=== PATIENT | female | born 1975 | race Caucasian/White ===

== ENCOUNTER 2018-02-12 14:05 | Emergency (ER) | payer SELFPAY ==
[~2018-02-12] VITALS: Ht 162.6 cm; Wt 78.9 kg
[~2018-02-12 14:05] MED LIST: ACET325T49 PO; CLON0.1T; CLON1TAB36 PO; DICY20TA10; DOXY100C2 PO; DULO60CA6 PO; GABA800T2 PO; HCTZ12.5T PO; IBUP800T26 PO; LAMO100T PO; LEVO50TA6; LISI-552; LVT.15T PO; PRAM1TAB3 PO; PRD20T PO; RT-ALBUINH IH; SIME125C PO; SLF500T PO
--- OUTSIDE RECORDS SUMMARY | 2018-02-12 14:10 | XMS REPORT ---
Author Author MYNOR PLAZA eClinicalWorks Address Unknown Phone Unavailable Care Team Providers Care Inorganic Chemist Name Role Phone MYNOR PLAZA CP Unavailable Allergies No Known Allergies Problems Problem Type Condition Code Onset Dates Condition Status Problem History of hypothyroidism Z86.39 Active Problem Left hip pain M25.552 Active Problem Adult acne L70.9 Active Assessment Hyperlipidemia, unspecified hyperlipidemia type E78.5 Active Assessment Hypothyroidism, unspecified type E03.9 Active Problem Hyperlipidemia, unspecified hyperlipidemia type E78.5 Active Problem Encounter for long-term current use of medication Z79.899 Active Problem Hypothyroidism, unspecified type E03.9 Active Problem Essential hypertension I10 Active Problem Anxiety associated with depression F41.8 Active Problem PTSD (post-traumatic stress disorder) F43.10 Active Problem Generalized abdominal pain R10.84 Active Medications Medication Code System Code Instructions Start Date End Date Status Dosage Fish Oil [facility] [address]-99 1000 MG Orally 2 times a day Dec 17, 2015 1 capsule Levothyroxine Sodium [facility] [address]-58 50 MCG Orally Once a day Dec 17, 2015 1 tablet Results No Known Results Summary Purpose eClinicalWorks Submission
--- OUTSIDE RECORDS SUMMARY | 2018-02-12 14:10 | XMS REPORT ---
Author Author AYAN BAIRD [facility] eClinicalWorks Address Unknown Phone Unavailable Care Team Providers Care Military Equipment Specialist Name Role Phone AYAN BAIRD CP Unavailable Allergies No Known Allergies Problems Problem Type Condition Code Onset Dates Condition Status Problem Generalized abdominal pain R10.84 Active Problem Encounter for long-term current use of medication Z79.899 Active Problem PTSD (post-traumatic stress disorder) F43.10 Active Problem Bowel habit changes R19.4 Active Problem Anxiety F41.9 Active Problem Lupus M32.9 Active Problem Hypothyroidism, unspecified type E03.9 Active Problem Hyperlipidemia, unspecified hyperlipidemia type E78.5 Active Problem Sinusitis J32.9 Active Problem Irritable bowel K58.9 Active Problem Adult acne L70.9 Active Problem Left hip pain M25.552 Active Assessment Bowel habit changes R19.4 Active Problem Anxiety associated with depression F41.8 Active Problem History of hypothyroidism Z86.39 Active Problem Essential hypertension I10 Active Medications No Known Medications Procedures Procedure Coding System Code Date LAB NOT BILLED BY [facility] CPT-4 NOBLL March 12, 2016 Results No Known Results Summary Purpose eClinicalWorks Submission
--- OUTSIDE RECORDS SUMMARY | 2018-02-12 14:10 | XMS REPORT ---
Author Author AYAN BAIRD [facility] eClinicalWorks Address Unknown Phone Unavailable Care Team Providers Care Hydrostatic Tester Name Role Phone AYAN BAIRD CP Unavailable [...] Problem Left hip pain M25.552 Active Problem Anxiety associated with depression F41.8 Active Problem History of hypothyroidism Z86.39 Active Problem Essential hypertension I10 Active Medications Medication Code System Code Instructions Start Date End Date Status Dosage Cholecalciferol [facility] [address]2006 UNIT Orally twice weekly March 10, 2016 1 tablet Results No Known Results Summary Purpose eClinicalWorks Submission
--- OUTSIDE RECORDS SUMMARY | 2018-02-12 14:10 | XMS REPORT ---
Author Author AYAN BAIRD Organization [employer] Address Unknown Phone Unavailable Care Team Providers Care Insurance Agency Owner Name Role Phone AYAN BAIRD CP Unavailable [...] Instructions Start Date End Date Status Dosage Levothyroxine Sodium [facility] [address]-31 50 MCG Orally Once a day Dec 17, 2015 1 tablet Lisinopril [facility] [address]-68 20 mg Orally Once a day Dec 16, 2015 1 tablet Results No Known Results Summary Purpose eClinicalWorks Submission
--- OUTSIDE RECORDS SUMMARY | 2018-02-12 14:10 | XMS REPORT ---
Author Author AYAN BAIRD [facility] Address [address] [place] [address] Care Team Providers Care It Sales Representative Name Role Phone AYAN BAIRD Unavailable PROBLEMS Type Condition ICD9-CM Code [id number] Code Onset Dates Condition Status SNOMED Code Problem Generalized abdominal pain R10.84 Active 641214360 Problem Hyperlipidemia, unspecified hyperlipidemia type E78.5 Active 15120890 Problem Hypothyroidism, unspecified type E03.9 Active 03274941 Problem Right axillary swelling M79.89 Active 510898433 Problem Irritable bowel K58.9 Active 73558903 Problem Sinusitis J32.9 Active 77594819 Problem Lupus M32.9 Active 01097097 Problem Bowel habit changes R19.4 Active 66043217 Problem Anxiety F41.9 Active 56931200 Problem Essential hypertension I10 Active 44552381 Problem Encounter for long-term current use of medication Z79.899 Active 751265396 Problem Adult acne L70.9 Active 34465031 Problem History of hypothyroidism Z86.39 Active 999677501 Problem Anxiety associated with depression F41.8 Active 639776858 Problem PTSD (post-traumatic stress disorder) F43.10 Active 58774409 Problem Left hip pain M25.552 Active 887676951 ALLERGIES Substance Reaction Event Type Date Status Clindamycin HCl Unknown Drug Allergy Nov, Active SOCIAL HISTORY No smoking Hx information available PLAN OF CARE Activity Details Follow Up 6 Months, prn Reason:BP thyroid VITAL SIGNS Height 63 in 2016-12-16 Weight 181.6 lbs 2016-12-16 Temperature 98.7 degrees Fahrenheit 2016-12-16 Heart Rate 82 bpm 2016-12-16 Respiratory Rate 18 2016-12-16 BMI 32.17 kg/m2 2016-12-16 Blood pressure systolic 136 mmHg 2016-12-16 Blood pressure diastolic 85 mmHg 2016-12-16 MEDICATIONS Medication Instructions Dosage Frequency Start Date End Date Duration Status Lisinopril 20 MG Orally Once a day 1 tablet 24h Active Bentyl 20 mg Orally 3 times a day 1 tablet by Oral route 3 times per day Pt needs f/u appt for further refills 8h 30 Active Bentyl 20 mg Orally 3 times a day prn 1 tablet by Oral route 3 times per day Pt needs f/u appt for further refills Active Levothyroxine Sodium 50 MCG Orally Once a day 1 tablet 24h Active Clonidine HCl 0.1 MG Orally twice a day as needed for anxiety 1 tablet 30 days Active Ibuprofen 800 MG Orally 2 times a day 1 tablet 12h 30 Active RESULTS Name Result Date Reference Range TSH 2016-12-16 TSH 2.520 0.450-4.500 CBC 2016-12-16 WBC 6.8 3.4-10.8 RBC 4.66 3.77-5.28 Hemoglobin 14.3 11.1-15.9 Hematocrit 41.3 34.0-46.6 MCV 89 79-97 MCH 30.7 26.6-33.0 MCHC 34.6 31.5-35.7 RDW 13.8 12.3-15.4 Platelets 262 150-379 Neutrophils 42 Lymphs 47 Monocytes 5 Eos 6 Basos 0 Neutrophils (Absolute) 2.8 1.4-7.0 Lymphs (Absolute) 3.2 0.7-3.1 Monocytes(Absolute) 0.4 0.1-0.9 Eos (Absolute) 0.4 0.0-0.4 Baso (Absolute) 0.0 0.0-0.2 Immature Granulocytes 0 Immature Grans (Abs) 0.0 0.0-0.1 LIPID PANEL 2016-12-16 Cholesterol, Total 228 100-199 Triglycerides 238 0-149 HDL Cholesterol 28 >39 VLDL Cholesterol Cristopher 48 5-40 LDL Cholesterol Calc 152 0-99 CMP 2016-12-16 Glucose, Serum 84 65-99 BUN 5 6-24 Creatinine, Serum 0.64 0.57-1.00 eGFR If NonAfricn Am 110 >59 eGFR If Africn Am 126 >59 BUN/Creatinine Ratio 8 9-23 Sodium, Serum 141 134-144 Potassium, Serum 4.2 3.5-5.2 Chloride, Serum 102 96-106 Carbon Dioxide, Total 22 18-29 Calcium, Serum 9.1 8.7-10.2 Protein, Total, Serum 6.9 6.0-8.5 Albumin, Serum 4.3 3.5-5.5 Globulin, Total 2.6 1.5-4.5 A/G Ratio 1.7 1.1-2.5 Bilirubin, Total 0.3 0.0-1.2 Alkaline Phosphatase, S 80 39-117 AST (SGOT) 15 0-40 ALT (SGPT) 13 0-32 PROCEDURES Procedure Date Ordered Related Diagnosis Body Site ASSAY THYROID STIM HORMONE Dec 16, 2016 COMPREHEN METABOLIC PANEL Dec 16, 2016 COMPLETE CBC W/AUTO DIFF WBC Dec 16, 2016 LIPID PANEL Dec 16, 2016 Office Visit, Est Pt., Level 4 Dec 16, 2016 VENIPUNCT, ROUTINE* Dec 16, 2016 IMMUNIZATIONS No Known Immunizations
--- OUTSIDE RECORDS SUMMARY | 2018-02-12 14:10 | XMS REPORT ---
Author Author AYAN BAIRD [facility] eClinicalWorks Address Unknown Phone Unavailable Care Team Providers Care Machine Stripper Name Role Phone AYAN BAIRD CP Unavailable Allergies, Adverse Reactions, Alerts Substance Reaction Event Type Clindamycin HCl Info Not Available Drug Allergy Problems Problem Type Condition Code Onset Dates Condition Status Problem PTSD (post-traumatic stress disorder) F43.10 Active Problem Hyperlipidemia, unspecified hyperlipidemia type E78.5 Active Problem Encounter for long-term current use of medication Z79.899 Active Problem Lupus M32.9 Active Assessment Anxiety F41.9 Active Problem Bowel habit changes R19.4 Active Assessment Right axillary swelling M79.89 Active Problem Right axillary swelling M79.89 Active Problem Irritable bowel K58.9 Active Problem Hypothyroidism, unspecified type E03.9 Active Problem Anxiety F41.9 Active Problem Sinusitis J32.9 Active Assessment Essential hypertension I10 Active Assessment Hypothyroidism, unspecified type E03.9 Active Assessment Irritable bowel K58.9 Active Assessment Vitamin D deficiency E55.9 Active Problem Left hip pain M25.552 Active Problem Anxiety associated with depression F41.8 Active Problem History of hypothyroidism Z86.39 Active Problem Essential hypertension I10 Active Problem Adult acne L70.9 Active Problem Generalized abdominal pain R10.84 Active Medications Medication Code System Code Instructions Start Date End Date Status Dosage Ibuprofen [facility] 49676643603 800 MG Orally 2 times a day 1 tablet Bentyl [facility] 84351655099 20 mg Orally 3 times a day 1 tablet by Oral route 3 times per day Pt needs f/u appt for further refills Bentyl [facility] [address]-99 20 mg Orally 3 times a day prn 1 tablet by Oral route 3 times per day Pt needs f/u appt for further refills Lisinopril [facility] [address]-36 20 MG Orally Once a day 1 tablet Levothyroxine Sodium [facility] [address]-06 50 MCG Orally Once a day 1 tablet Clonidine HCl [facility] [address]-41 0.1 MG Orally twice a day as needed for anxiety Dec 16, 2015 1 tablet Augmentin [facility] [address]-19 875-125 MG Orally every 12 hrs June 15, 2016 Jun 25, 2016 1 tablet Vitamin D (Cholecalciferol) [facility] [address] 5000 UNIT Orally Once a day June 15, 2016 Jul 15, 2016 1 capsule Fish Oil [facility] [address]-96 1000 MG Orally 2 times a day Dec 17, 2015 1 capsule Procedures Procedure Coding System Code Date LAB NOT BILLED BY [facility] CPT-4 NOBLL June 15, 2016 Office Visit, Est Pt., Level 5 CPT-4 54818 June 15, 2016 ELECTROCARDIOGRAM, TRACING CPT-4 02936 June 15, 2016 VENIPUNCT, ROUTINE* CPT-4 32333 June 15, 2016 Vital Signs Date/Time: June 15, 2016 Cardiac Monitoring Heart Rate 78 bpm Weight 186.0 lbs Height 63 in Blood Pressure Diastolic 100 mmHg Blood Pressure Systolic 156 mmHg Results No Known Results Summary Purpose eClinicalWorks Submission
--- OUTSIDE RECORDS SUMMARY | 2018-02-12 14:10 | XMS REPORT ---
Author Author AYAN BAIRD [facility] eClinicalWorks Address Unknown Phone Unavailable Care Team Providers Care Golf Ball Winder Name Role Phone AYAN BAIRD CP Unavailable Allergies, Adverse Reactions, Alerts Substance Reaction Event Type Clindamycin HCl Info Not Available Drug Allergy Problems Problem Type Condition Code Onset Dates Condition Status Problem Generalized abdominal pain R10.84 Active Problem Encounter for long-term current use of medication Z79.899 Active Problem PTSD (post-traumatic stress disorder) F43.10 Active Problem Bowel habit changes R19.4 Active Assessment Sinusitis J32.9 Active Problem Anxiety F41.9 Active Assessment Irritable bowel K58.9 Active Assessment Generalized abdominal pain R10.84 Active Problem Lupus M32.9 Active Problem Hypothyroidism, unspecified type E03.9 Active Problem Hyperlipidemia, unspecified hyperlipidemia type E78.5 Active Problem Sinusitis J32.9 Active Problem Irritable bowel K58.9 Active Assessment Lupus M32.9 Active Assessment Essential hypertension I10 Active Assessment Anxiety F41.9 Active Assessment Bowel habit changes R19.4 Active Problem Adult acne L70.9 Active Problem Left hip pain M25.552 Active Assessment Hypothyroidism, unspecified type E03.9 Active Problem Anxiety associated with depression F41.8 Active Assessment Diarrhea R19.7 Active Problem History of hypothyroidism Z86.39 Active Problem Essential hypertension I10 Active Medications Medication Code System Code Instructions Start Date End Date Status Dosage Fish Oil [facility] [address]-66 1000 MG Orally 2 times a day Dec 17, 2015 1 capsule Clonidine HCl [facility] [address]-18 0.1 MG Orally twice a day as needed for anxiety Dec 16, 2015 1 tablet Doxycycline Hyclate [facility] [place] [address]-63 100 MG Orally every 12 hrs March 03, 2016 March 13, 2016 1 capsule Bentyl [facility] [address]-72 20 mg Orally 3 times a day May 10, 2014 1 tablet by Oral route 3 times per day Pt needs f/u appt for further refills Levothyroxine Sodium [facility] [place] [address]-34 50 MCG Orally Once a day Dec 17, 2015 1 tablet Lisinopril [facility] [address]-72 20 MG Orally Once a day Dec 16, 2015 1 tablet Ibuprofen [facility] [address]-96 800 MG Orally 2 times a day Dec 16, 2015 1 tablet Procedures Procedure Coding System Code Date Office Visit, Est Pt., Level 5 CPT-4 79851 March 03, 2016 VENIPUNCT, ROUTINE* CPT-4 77395 March 03, 2016 X-RAY EXAM OF ABDOMEN CPT-4 70316 March 03, 2016 Vital Signs Date/Time: March 03, 2016 Temperature 99.0 F Weight 193.8 lbs Height 63 in BMI 34.33 Index Blood Pressure Diastolic 82 mmHg Blood Pressure Systolic 134 mmHg Cardiac Monitoring Heart Rate 86 bpm Results Name Result Date Reference Range Unit Abnormality Flag CBC ----Lymphs 40 65169467 % ----Neutrophils 45 92720589 % ----Baso (Absolute) 0.1 03248347 0.0-0.2 x10E3/uL ----Hemoglobin 15.3 65616029 11.1-15.9 g/dL ----Eos (Absolute) 0.7 09273856 0.0-0.4 x10E3/uL H ----Hematocrit 44.3 99452394 34.0-46.6 % ----Monocytes(Absolute) 0.5 58052405 0.1-0.9 x10E3/uL ----MCV 89 76812785 79-97 fL ----Lymphs (Absolute) 3.4 16834936 0.7-3.1 x10E3/uL H ----MCH 30.7 02704368 26.6-33.0 pg ----Neutrophils (Absolute) 3.9 96462077 1.4-7.0 x10E3/uL ----MCHC 34.5 48918169 31.5-35.7 g/dL ----Immature Granulocytes 0 88942048 % ----Basos 1 95287804 % ----RDW 13.6 90981448 12.3-15.4 % ----Immature Grans (Abs) 0.0 18530676 0.0-0.1 x10E3/uL ----WBC 8.5 14784321 3.4-10.8 x10E3/uL ----Platelets 265 43369237 150-379 x10E3/uL ----Eos 8 23880943 % ----RBC 4.99 49944385 3.77-5.28 x10E6/uL ----Monocytes 6 47548264 % ESR/SED RATE ----Sedimentation Rate-Westergren 19 75527582 0-32 mm/hr ROUTINE VENIPUNCTURE TSH ----TSH 3.210 86334955 0.450-4.500 uIU/mL VITAMIN D, 25-H ----Vitamin D, 25-Hydroxy 11.8 11810938 30.0-100.0 ng/mL L CMP ----Creatinine, Serum 0.62 28951500 0.57-1.00 mg/dL ----BUN 6 95299599 6-24 mg/dL ----eGFR If Africn Am 129 30571057 >59 mL/min/1.73 ----eGFR If NonAfricn Am 112 73075100 >59 mL/min/1.73 ----Sodium, Serum 142 88748664 134-144 mmol/L ----BUN/Creatinine Ratio 10 34320465 9-23 ----Chloride, Serum 102 79622206 97-108 mmol/L ----Potassium, Serum 4.3 38189927 3.5-5.2 mmol/L ----Carbon Dioxide, Total 22 89271601 18-29 mmol/L ----Protein, Total, Serum 7.6 50581777 6.0-8.5 g/dL ----Calcium, Serum 9.4 73601959 8.7-10.2 mg/dL ----Globulin, Total 2.9 87834280 1.5-4.5 g/dL ----Albumin, Serum 4.7 93412701 3.5-5.5 g/dL ----Bilirubin, Total 0.3 09193647 0.0-1.2 mg/dL ----Glucose, Serum 80 55327076 65-99 mg/dL ----A/G Ratio 1.6 23543491 1.1-2.5 ----ALT (SGPT) 19 20160303 0-32 IU/L ----Alkaline Phosphatase, S 101 20160303 39-117 IU/L ----AST (SGOT) 14 20160303 0-40 IU/L Summary Purpose eClinicalWorks Submission
--- OUTSIDE RECORDS SUMMARY | 2018-02-12 14:11 | XMS REPORT ---
Author Author LYNN FELICIANO Organization [facility] Address [address] [place] [address] Care Team Providers Care Irrigation Tax Assessor Collector Name Role Phone LYNN FELICIANO Unavailable PROBLEMS Type Condition ICD9-CM Code [id number] Code Onset Dates Condition Status SNOMED Code Problem Generalized abdominal pain R10.84 Active 981679076 Problem Hyperlipidemia, unspecified hyperlipidemia type E78.5 Active 02065325 Problem Hypothyroidism, unspecified type E03.9 Active 15752374 Problem Right axillary swelling M79.89 Active 677848805 Problem Irritable bowel K58.9 Active 30831030 Problem Sinusitis J32.9 Active 22218634 Problem Lupus M32.9 Active 12956610 Problem Bowel habit changes R19.4 Active 95667136 Problem Anxiety F41.9 Active 10763904 Problem Essential hypertension I10 Active 48735878 Problem Encounter for long-term current use of medication Z79.899 Active 249246113 Problem Adult acne L70.9 Active 68851110 Problem History of hypothyroidism Z86.39 Active 855833639 Problem Anxiety associated with depression F41.8 Active 231215660 Problem PTSD (post-traumatic stress disorder) F43.10 Active 26578927 Problem Left hip pain M25.552 Active 770304416 ALLERGIES Substance Reaction Event Type Date Status Clindamycin HCl Unknown Drug Allergy Oct, Active SOCIAL HISTORY No smoking Hx information available PLAN OF CARE Activity Details Follow Up prn Madl if symptoms do not improve Reason: VITAL SIGNS Height 63 in 2016-11-18 Weight 184.0 lbs 2016-11-18 Temperature 97.8 degrees Fahrenheit 2016-11-18 Heart Rate 80 bpm 2016-11-18 Respiratory Rate 18 2016-11-18 BMI 32.59 kg/m2 2016-11-18 Blood pressure systolic 120 mmHg 2016-11-18 Blood pressure diastolic 88 mmHg 2016-11-18 MEDICATIONS Medication Instructions Dosage Frequency Start Date End Date Duration Status Clonidine HCl 0.1 MG Orally twice a day as needed for anxiety 1 tablet Nov, 30 days Active Doxycycline Hyclate 100 MG Orally every 12 hrs 1 capsule 12h Oct, Nov, 5 day(s) Active Lisinopril 20 MG Orally Once a day 1 tablet 24h Active Levothyroxine Sodium 50 MCG Orally Once a day 1 tablet 24h Active Ibuprofen 800 MG Orally 2 times a day 1 tablet 12h 30 Active RESULTS No Results PROCEDURES Procedure Date Ordered Related Diagnosis Body Site Office Visit, Est Pt., Level 3 Nov 18, 2016 IMMUNIZATIONS No Known Immunizations
--- OUTSIDE RECORDS SUMMARY | 2018-02-12 14:11 | XMS REPORT ---
Author Author AYAN BAIRD [facility] Address [address] [place] [address] Care Team Providers Care Integrated Marketing Manager Name Role Phone AYAN BAIRD Unavailable PROBLEMS Type Condition ICD9-CM Code [id number] Code Onset Dates Condition Status SNOMED Code Problem Generalized abdominal pain R10.84 Active 103806052 Problem Hyperlipidemia, unspecified hyperlipidemia type E78.5 Active 98511321 Problem Hypothyroidism, unspecified type E03.9 Active 72564406 Problem Right axillary swelling M79.89 Active 150275469 Problem Irritable bowel K58.9 Active 76741710 Problem Sinusitis J32.9 Active 68663687 Problem Lupus M32.9 Active 24089249 Problem Bowel habit changes R19.4 Active 84130926 Problem Anxiety F41.9 Active 41663400 Problem Essential hypertension I10 Active 39383845 Problem Encounter for long-term current use of medication Z79.899 Active 122101733 Problem Adult acne L70.9 Active 88282043 Problem History of hypothyroidism Z86.39 Active 266153590 Problem Anxiety associated with depression F41.8 Active 635055532 Problem PTSD (post-traumatic stress disorder) F43.10 Active 92290977 Problem Left hip pain M25.552 Active 169429668 ALLERGIES Unknown Allergies SOCIAL HISTORY No smoking Hx information available PLAN OF CARE VITAL SIGNS MEDICATIONS Medication Instructions Dosage Frequency Start Date End Date Duration Status Bentyl 20 mg Orally 3 times a day 1 tablet by Oral route 3 times per day Pt needs f/u appt for further refills 8h 30 Active Levothyroxine Sodium 50 MCG Orally Once a day 1 tablet 24h Active RESULTS No Results PROCEDURES No Known procedures IMMUNIZATIONS No Known Immunizations
--- OUTSIDE RECORDS SUMMARY | 2018-02-12 14:11 | XMS REPORT ---
Author Author MYNOR PLAZA [employer] Address Unknown Phone Unavailable Care Team Providers Care Radio Division Captain Name Role Phone MYNOR PLAZA CP Unavailable Allergies, Adverse Reactions, Alerts Substance Reaction Event Type Clindamycin HCl Info Not Available Drug Allergy Problems Problem Type Condition Code Onset Dates Condition Status Assessment Encounter for long-term current use of medication Z79.899 Active Problem History of hypothyroidism Z86.39 Active Assessment Generalized abdominal pain R10.84 Active Problem PTSD (post-traumatic stress disorder) F43.10 Active Problem Generalized abdominal pain R10.84 Active Problem Encounter for long-term current use of medication Z79.899 Active Problem Left hip pain M25.552 Active Problem Adult acne L70.9 Active Problem Essential hypertension I10 Active Problem Anxiety associated with depression F41.8 Active Assessment Adult acne L70.9 Active Assessment Left hip pain M25.552 Active Assessment Anxiety associated with depression F41.8 Active Assessment History of hypothyroidism Z86.39 Active Assessment Essential hypertension I10 Active Medications Medication Code System Code Instructions Start Date End Date Status Dosage Clonidine HCl [facility] [address]-34 0.1 MG Orally twice a day as needed for anxiety Dec 16, 2015 1 tablet Ibuprofen [facility] [address]-43 800 MG Orally 2 times a day Dec 16, 2015 February 14, 2016 1 tablet Bactroban [facility] [address]-52 2 % Externally Three times a day Dec 16, 2015 February 14, 2016 1 application to affected area Bentyl [facility] [address]-95 20 MG Orally 3 times a day May 10, 2014January 1 tablet by Oral route 3 times per day Pt needs f/u appt for further refills Lisinopril [facility] [address]-14 20 MG Orally Once a day Dec 16, 2015 1 tablet Procedures Procedure Coding System Code Date COMPREHEN METABOLIC PANEL CPT-4 82795 Dec 16, 2015 ASSAY THYROID STIM HORMONE CPT-4 09952 Dec 16, 2015 C-REACTIVE PROTEIN CPT-4 95963 Dec 16, 2015 LIPID PANEL CPT-4 74679 Dec 16, 2015 COMPLETE CBC W/AUTO DIFF WBC CPT-4 88410 Dec 16, 2015 VENIPUNCT, ROUTINE* CPT-4 28740 Dec 16, 2015 Office Visit, Est Pt., Level 4 CPT-4 80904 Dec 16, 2015 Vital Signs Date/Time: Dec 16, 2015 Temperature 98.0 F Weight 198.2 lbs Height 63 in BMI 35.11 Index Blood Pressure Diastolic 92 mmHg Blood Pressure Systolic 140 mmHg Cardiac Monitoring Heart Rate 80 bpm Results Name Result Date Reference Range Unit Abnormality Flag CRP ----C-Reactive Protein, Quant 2.6 [id number] 0.0-4.9 mg/L LIPID PANEL ----LDL Cholesterol Calc 127 93239289 0-99 mg/dL H ----VLDL Cholesterol Cristopher 42 21427707 5-40 mg/dL H ----Cholesterol, Total 199 80107067 100-199 mg/dL ----HDL Cholesterol 30 62811628 >39 mg/dL L ----Triglycerides 209 40106331 0-149 mg/dL H TSH ----TSH 6.700 [id number] 0.450-4.500 uIU/mL H CBC ----MCHC 34.0 94821344 31.5-35.7 g/dL ----MCH 30.4 62530301 26.6-33.0 pg ----Platelets 292 14861234 150-379 x10E3/uL ----RDW 13.3 95608639 12.3-15.4 % ----Immature Granulocytes 0 61882016 % ----Immature Grans (Abs) 0.0 09889792 0.0-0.1 x10E3/uL ----Lymphs 39 95792408 % ----Monocytes 6 99305330 % ----Neutrophils 51 93259640 % ----Neutrophils (Absolute) 3.8 96481031 1.4-7.0 x10E3/uL ----Hematocrit 44.4 58560913 34.0-46.6 % ----Lymphs (Absolute) 2.9 38218351 0.7-3.1 x10E3/uL ----MCV 90 78335674 79-97 fL ----RBC 4.96 23369680 3.77-5.28 x10E6/uL ----Eos 3 20151216 % ----Basos 1 20151216 % ----Hemoglobin 15.1 20151216 11.1-15.9 g/dL ----Baso (Absolute) 0.0 40175172 0.0-0.2 x10E3/uL ----WBC 7.4 20151216 3.4-10.8 x10E3/uL ----Monocytes(Absolute) 0.5 96114648 0.1-0.9 x10E3/uL ----Eos (Absolute) 0.2 15356873 0.0-0.4 x10E3/uL CMP ----Potassium, Serum 4.8 20151216 3.5-5.2 mmol/L ----Sodium, Serum 142 20151216 134-144 mmol/L ----BUN/Creatinine Ratio 10 20151216 9-23 ----eGFR If Africn Am 125 00416351 >59 mL/min/1.73 ----eGFR If NonAfricn Am 109 78430244 >59 mL/min/1.73 ----Creatinine, Serum 0.67 20151216 0.57-1.00 mg/dL ----BUN 7 20151216 6-24 mg/dL ----Glucose, Serum 82 20151216 65-99 mg/dL ----AST (SGOT) 20 20151216 0-40 IU/L ----Globulin, Total 3.0 20151216 1.5-4.5 g/dL ----ALT (SGPT) 24 20151216 0-32 IU/L ----A/G Ratio 1.5 20151216 1.1-2.5 ----Bilirubin, Total 0.3 20151216 0.0-1.2 mg/dL ----Alkaline Phosphatase, S 81 20151216 39-117 IU/L ----Carbon Dioxide, Total 24 20151216 18-29 mmol/L ----Calcium, Serum 9.3 20151216 8.7-10.2 mg/dL ----Protein, Total, Serum 7.4 20151216 6.0-8.5 g/dL ----Albumin, Serum 4.4 20151216 3.5-5.5 g/dL ----Chloride, Serum 100 20151216 97-108 mmol/L Summary Purpose eClinicalWorks Submission
[2018-02-12] MEDS ORDERED: HYDR-3584 PO (14:36)
[2018-02-12] MEDS ORDERED: BUDE10.2 IH (14:36)
[2018-02-12 14:54] LABS: BILIRUBIN,URINE NEGATIVE (NEGATIVE); CLARITY,URINE CLEAR; COLOR,URINE YELLOW; GLUCOSE, URINE (UA) NEGATIVE (NEGATIVE); KETONES,URINE NEGATIVE (NEGATIVE); LEUKOCYTE ESTERASE ,URINE 1+ (NEGATIVE); NITRITE,URINE NEGATIVE (NEGATIVE); PH,URINE 6 (5-9); PROTEIN,URINE NEGATIVE (NEGATIVE); UROBILINOGEN,URINE NORMAL (NORMAL)
[2018-02-12 15:01] LABS: BACTERIA,URINE MODERATE /HPF; RBC,URINE RARE /HPF; SQUAMOUS EPITHELIAL CELL,UR 25-50 /HPF
--- NOTE | 2018-02-12 15:43 | ED Abdominal Pain ---
General Chief Complaint: Abdominal/GI Problems Stated Complaint: THROWING UP,CHILLS Nursing Triage Note: ABD SINCE YEST AFTER EATING BEEF JERKY, ABD PAIN N/V/D. THINKS MIGHT BE FOOD POISONING Sepsis Screen: No Definite Risk Source of Information: Patient Exam Limitations: No Limitations History of Present Illness Date Seen by Provider: Feb 12, 2018 Time Seen by Provider: 15:43 Initial Comments 42-year-old patient presents to the emergency department complaints generalized abdominal cramping, nausea, vomiting, and diarrhea beginning yesterday. Reports eating beef jerky prior to symptom onset. States has similar symptoms. Denies eating the same foods. Patient reports losing approximately 80 pounds over the last 12 months from dieting and exercise. Sister is concerned the patient has hypoglycemia and states all of the siblings, mother, and grandmother have hypoglycemia. Timing/Duration: Other (Improved today) Severity/Quality: Cramping Location: Generalized Abdomen Radiation: No Radiation Activities at Onset: Other (after eating beef jerky) Modifying Factors: Worsens With Other (worse with eating and drinking) Allergies and Home Medications Allergies Coded Allergies: acetaminophen (Verified Allergy, Unknown, 04/02/16) clindamycin (Unverified Allergy, Unknown, 12/27/10) propoxyphene (Verified Allergy, Unknown, 04/02/16) Home Medications Acetaminophen 325 Mg Tablet, 650 MG PO PRN, (Reported) Albuterol Sulfate 8.5 Gm Hfa.aer.ad, 2 PUFF IH Q4H PRN for SHORTNESS OF BREATH Prescribed by: MIMA SEALS on 01/17/16 1637 Budesonide/Formoterol Fumarate 10.2 Gm Hfa.aer.ad, 2 PUFF IH BID, (Reported) Ibuprofen 800 Mg Tablet, 800 MG PO q8h PRN for PAIN, (Reported) Ondansetron 8 Mg Tab.rapdis, 8 MG PO Q6H PRN for NAUSEA/VOMITING-1ST LINE Prescribed by: MIMA SEALS on 02/12/18 1731 Past Vfdbkgm-Nszojr-Mmdeso Hx Patient Social History Alcohol Use: Past History Recreational Drug Use: No Smoking Status: Current Everyday Smoker Type Used: Cigarettes Recent Foreign Travel: No Contact w/Someone Who Travel: No Recent Infectious Disease Expo: No Recent Hopitalizations: No Physical Abuse: No Sexual Abuse: No Seasonal Allergies Seasonal Allergies: No Surgeries History of Surgeries: Yes (MAXILLOFACIAL SURG, TEETH EXTRACTIONS) Surgeries: Section, Hysterectomy Respiratory History of Respiratory Disorde: Yes (ASTHMA?) Respiratory Disorders: COPD Cardiovascular History of Cardiac Disorders: No Cardiac Disorders: Hypertension Neurological History of Neurological Disord: Yes Neurological Disorders: Neuropathy Reproductive System Hx Reproductive Disorders: Yes 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 Gastrointestinal History of Gastrointestinal Di: No Musculoskeletal History of Musculoskeletal Dis: Yes (FIBROMYAGLIA, NEUROPATHY) Musculoskeletal Disorders: Fibromyalgia Endocrine History of Endocrine Disorders: Yes Endocrine Disorders: Hypothyroidsim, Lupus Cancer History of Cancer: No Psychosocial History of Psychiatric Problem: Yes Behavioral Health Disorders: Anxiety Suicide Risk Score: 0 Integumentary History of Skin or Integumenta: No Blood Transfusions History of Blood Disorders: No Adverse Reaction to a Blood Tr: No Family Medical History Significant Family History: No Pertinent Family Hx Physical Exam Vital Signs VS - Last 72 Hours, by Label 02/12/18 14:15 Temp 97.8 Pulse 97 Resp 18 B/P (MAP) 161/104 (123) Pulse Ox 98 Capillary Refill : Less Than 3 Seconds Progress/Results/Core Measures Results/Orders Lab Results Laboratory Tests Test 02/12/18 14:38 02/12/18 14:50 02/12/18 15:22 Range/Units Urine Color YELLOW Urine Clarity CLEAR Urine pH 6 5-9 Urine Specific [place] 1.020 1.016-1.022 Urine Protein NEGATIVE NEGATIVE Urine Glucose (UA) NEGATIVE NEGATIVE Urine Ketones NEGATIVE NEGATIVE Urine Nitrite NEGATIVE NEGATIVE Urine Bilirubin NEGATIVE NEGATIVE Urine Urobilinogen NORMAL NORMAL MG/DL Urine Leukocyte Esterase 1+ H NEGATIVE Urine RBC (Auto) NEGATIVE NEGATIVE Urine RBC RARE /HPF Urine WBC NONE /HPF Urine Squamous Epithelial Cells 25-50 H /HPF Urine Crystals NONE /LPF Urine Bacteria MODERATE H /HPF Urine Casts NONE /LPF Urine Mucus NEGATIVE /LPF Urine Culture Indicated NO White Blood Count 6.9 4.3-11.0 10^3/uL Red Blood Count 4.88 4.35-5.85 10^6/uL Hemoglobin 15.2 11.5-16.0 G/DL Hematocrit 45 35-52 % Mean Corpuscular Volume 93 80-99 FL Mean Corpuscular Hemoglobin 31 25-34 PG Mean Corpuscular Hemoglobin Concent 34 32-36 G/DL Red Cell Distribution Width 13.6 10.0-14.5 % Platelet Count 243 130-400 10^3/uL Mean Platelet Volume 11.4 H 7.4-10.4 FL Neutrophils (%) (Auto) 47 42-75 % Lymphocytes (%) (Auto) 44 12-44 % Monocytes (%) (Auto) 5 0-12 % Eosinophils (%) (Auto) 3 0-10 % Basophils (%) (Auto) 1 0-10 % Neutrophils # (Auto) 3.2 1.8-7.8 X 10^3 Lymphocytes # (Auto) 3.0 1.0-4.0 X 10^3 Monocytes # (Auto) 0.3 0.0-1.0 X 10^3 Eosinophils # (Auto) 0.2 0.0-0.3 10^3/uL Basophils # (Auto) 0.1 0.0-0.1 10^3/uL Sodium Level 143 135-145 MMOL/L Potassium Level 3.8 3.6-5.0 MMOL/L Chloride Level 111 H 98-107 MMOL/L Carbon Dioxide Level 23 21-32 MMOL/L Anion Gap 9 5-14 MMOL/L Blood Urea Nitrogen 9 7-18 MG/DL Creatinine 0.73 0.60-1.30 MG/DL Estimat Glomerular Filtration Rate > 60 BUN/Creatinine Ratio 12 Glucose Level 100 70-105 MG/DL Calcium Level 8.9 8.5-10.1 MG/DL Total Bilirubin 0.3 0.1-1.0 MG/DL Aspartate Amino Transf (AST/SGOT) 14 5-34 U/L Alanine Aminotransferase (ALT/SGPT) 15 0-55 U/L Alkaline Phosphatase 89 40-136 U/L C-Reactive Protein High Sensitivity 0.28 0.00-0.50 MG/DL Total Protein 6.9 6.4-8.2 GM/DL Albumin 4.0 3.2-4.5 GM/DL Lipase 41 8-78 U/L Glucometer 69 L 70-110 MG/DL My Orders Petey - MIMA SEALS Cbc With Automated Diff (02/12/18 14:20) Comprehensive Metabolic Panel (02/12/18 14:20) Hs C Reactive Protein (02/12/18 14:20) Lipase (02/12/18 14:20) Ua Culture If Indicated (02/12/18 14:20) Saline Lock/Iv-Start (02/12/18 14:20) D50w (Emergency) Syringe (Dextrose 50% 5 (02/12/18 15:45) Ondansetron Oral Dissolve Tab (Zofran (02/12/18 17:26) Famotidine Tablet (Pepcid Tablet) (02/12/18 17:26) Accucheck Stat ONCE (02/12/18 17:26) Medications Given in ED Current Medications Medications Dose Ordered Sig/Favio Route Start Time Stop Time Status Last Admin Dose Admin Dextrose 50 ml ONCE ONCE IV 02/12/18 15:45 02/12/18 15:47 DC 02/12/18 15:42 50 ML Vital Signs/I&O Vital Sign - Last 12Hours 02/12/18 14:15 Temp 97.8 Pulse 97 Resp 18 B/P (MAP) 161/104 (123) Pulse Ox 98 Blood Pressure Mean: 123 Departure Impression Impression: Primary Impression: Nausea, vomiting, and diarrhea Additional Impression: Hypoglycemia, unspecified Disposition: 01 HOME, SELF-CARE Condition: Improved Departure-Patient Inst. Decision time for Depature: 17:28 Referrals: [facility] (PCP/Family) Primary Care Physician Patient Instructions: Balanced Diet, Low Blood Sugar, Adult (DC), Low Carbohydrate Diet, The New Food Label, Weight Loss Diet Add. Discharge Instructions: All discharge instructions reviewed with patient and/or family. Voiced understanding. Medications as instructed. Continue usual home medications. Drink plenty of fluids. Imodium pwde-yba-ibyqcpv as directed for diarrhea. Follow-up with [facility] for recheck this week. Discuss seeing a dietitian with AKIN Díaz. Return to the emergency department for worsened pain, vomiting, diarrhea, rectal bleeding, vomiting blood, decreased urination, or any other concerns. Scripts Ondansetron (Ondansetron Odt) 8 Mg Tab.rapdis 8 MG PO Q6H Y for NAUSEA/VOMITING-1ST LINE, #10 TAB 0 Refills Prov: MIMA SEALS 02/12/18 MIMA SEALS Feb 12, 2018 15:43
[2018-02-12] MEDS ORDERED: DEXTROSE 50% 50 ML (IMS) SYR IV ONE (15:45)
[2018-02-12 15:51] LABS: BASOPHILS # (AUTO) 0.1 10^3/uL (0.0-0.1); BASOPHILS % (AUTO) 1 % (0-10); EOSINOPHILS # (AUTO) 0.2 10^3/uL (0.0-0.3); EOSINOPHILS % (AUTO) 3 % (0-10); HEMATOCRIT 45 % (35-52); HEMOGLOBIN 15.2 G/DL (11.5-16.0); LYMPHOCYTES % (AUTO) 44 % (12-44); MEAN CORPUSCULAR HEMOGLOBIN 31 PG (25-34); MEAN CORPUSCULAR HGB CONC 34 G/DL (32-36); MEAN CORPUSCULAR VOLUME 93 FL (80-99); MEAN PLATELET VOLUME 11.4 FL (7.4-10.4); MONOCYTES # (AUTO) 0.3 X 10^3 (0.0-1.0); MONOCYTES % (AUTO) 5 % (0-12); NEUTROPHILS # (AUTO) 3.2 X 10^3 (1.8-7.8); NEUTROPHILS % (AUTO) 47 % (42-75); PLATELET COUNT 243 10^3/uL (130-400); RED BLOOD COUNT 4.88 10^6/uL (4.35-5.85); RED CELL DISTRIBUTION WIDTH 13.6 % (10.0-14.5); WHITE BLOOD COUNT 6.9 10^3/uL (4.3-11.0)
[2018-02-12 16:12] LABS: ALANINE AMINOTRANSFERASE 15 U/L (0-55); ALKALINE PHOSPHATASE 89 U/L (40-136); BILIRUBIN,TOTAL 0.3 MG/DL (0.1-1.0); BUN/CREATININE RATIO 12; CALCIUM 8.9 MG/DL (8.5-10.1); CARBON DIOXIDE 23 MMOL/L (21-32); CHLORIDE 111 MMOL/L (98-107); CREATININE SERUM 0.73 MG/DL (0.60-1.30); GFR ESTIMATED > 60; GLUCOSE 100 MG/DL (70-105); LIPASE 41 U/L (8-78); POTASSIUM 3.8 MMOL/L (3.6-5.0); SODIUM 143 MMOL/L (135-145); TOTAL PROTEIN 6.9 GM/DL (6.4-8.2)
[2018-02-12] MEDS ORDERED: FAMOTIDINE 20 MG (PEPCID) TABLET PO STA (17:26)
[2018-02-12] MEDS ORDERED: ONDANSETRON 4 MG (ZOFRAN) ORAL DISSOLVE TAB SL STA (17:26)
[2018-02-12] MEDS ORDERED: ONDA8TAB13 PO (17:31)
[2018-02-12 17:55] VITALS: BP 152/88
== END 2018-02-12 17:55 | disposition home or self-care (01) ==
LOC: ER 14:05
DX: R11.2 Nausea with vomiting, unspecified (principal); R19.7 Diarrhea, unspecified; F41.9 Anxiety disorder, unspecified; E03.9 Hypothyroidism, unspecified; G62.9 Polyneuropathy, unspecified; I10 Essential (primary) hypertension; J44.9 Chronic obstructive pulmonary disease, unspecified; F17.210 Nicotine dependence, cigarettes, uncomplicated; Z87.59 Personal history of other complications of pregnancy, childbirth and the puerperium; Z90.710 Acquired absence of both cervix and uterus; Z88.1 Allergy status to other antibiotic agents; Z88.6 Allergy status to analgesic agent
CPT/HCPCS: 36415; 80053; 81000; 82962; 83690; 85025; 86141; 96374

== ENCOUNTER → 2018-07-03 | Outpatient (CLI) | payer OTHER ==
[~2018-07-03] MED LIST changes: +BUDE10.2 IH; +HYDR-3584 PO; +ONDA8TAB13 PO
--- NOTE | 2018-07-03 10:39 | Diagnostic Imaging Report ---
PROCEDURE: US Gallbladder. TECHNIQUE: Multiple real-time grayscale images were obtained over the right upper quadrant in various projections. INDICATION: Right upper quadrant pain. FINDINGS: The pancreas is unremarkable. The liver is upper limits of normal in size 18 cm. There is homogeneous echotexture. No discrete liver mass is identified. The main portal vein is patent and shows normal direction of flow. The gallbladder is without stones or sludge. No wall thickening or pericholecystic fluid is identified. No intrahepatic or extrahepatic biliary ductal dilatation is seen. The right kidney is unremarkable. There is no ascites. IMPRESSION: Unremarkable gallbladder ultrasound. There is no evidence of cholelithiasis or acute cholecystitis. Dictated by: Dictated on workstation # [id number]
== END ==
LOC: RAD 09:41
PROVIDERS: ATTEND Nurse Practitioner Primary Care
DX: R10.11 Right upper quadrant pain (principal)
CPT/HCPCS: 76705

== ENCOUNTER → 2020-07-31 | Outpatient (CLI) | payer OTHER ==
--- NOTE | 2020-07-31 09:41 | Diagnostic Imaging Report ---
PROCEDURE: MR imaging of the brain without contrast. TECHNIQUE: Multiplanar, multisequence MR imaging of the brain was performed without contrast. INDICATION: Headaches, dizziness and loss of control of the left side of the body. No prior MRI brain studies are available for comparison. FINDINGS: Ventricles and sulci are within normal limits. There is no sulcal effacement or midline shift. No acute intra-axial or extra-axial hemorrhage is detected. Corpus callosum is unremarkable. Sella and parasellar structures are unremarkable. The normal expected flow-voids within the carotid siphons are seen. There is no diffusion restriction identified to suggest acute ischemia. Trace mucosal thickening of the sphenoid sinus is noted. IMPRESSION: Essentially unremarkable noncontrast MRI of the brain. No acute feature is detected. Dictated by: Dictated on workstation # [id number]
== END ==
LOC: RAD 08:34
PROVIDERS: ATTEND Physician Assistant
DX: G62.9 Polyneuropathy, unspecified (principal)
CPT/HCPCS: 70551

== ENCOUNTER 2021-01-10 14:32 | Emergency (ER) | payer MEDICAID, OTHER ==
[~2021-01-10] VITALS: Ht 167 cm; Wt 102.0 kg
[~2021-01-10 14:32] MED LIST changes: +CLN.1T; -CLON0.1T; -LISI-552; +LISI20TA26
[2021-01-10] MEDS ORDERED: FAMOTIDINE 20 MG (PEPCID) TABLET PO ONE (14:45)
[2021-01-10] MEDS ORDERED: diphenhydrAMINE 25 MG TAB (BENADRYL) PO ONE (14:45)
[2021-01-10] MEDS ORDERED: LORATADINE (CLARITIN) 10 MG TAB PO ONE (14:45)
--- NOTE | 2021-01-10 15:35 | ED General ---
General Chief Complaint: Allergic Reaction Stated Complaint: ALLERGIC REACTION; SOB; RED BLOTCHES; Nursing Triage Note: ARRIVED VIA AMB TO ROOM 08 WITH COMPLAINTS OF SOA AND HIVES AFTER EATING A CHICKEN SALAD SANDWHICH. PT TOOK X1 BENADRYL BEFORE COMING TO THE ER. Nursing Sepsis Screen: No Definite Risk History of Present Illness Date Seen by Provider: Jan 10, 2021 Time Seen by Provider: 14:32 Initial Comments 45-year-old female presents for a rash on her chest and arms that developed after eating a chicken salad sandwich on honey wheat bread. She reports eating a salad in the past but she has never used this bread. She has no known allergies to foods. She felt like her throat was swelling but never had d ifficulty breathing. She did take Benadryl 25 mg which improved her symptoms slightly. Timing/Duration: 1 Hour Severity: Moderate Associated Systoms: No Chest Pain, No Cough, No Fever/Chills, No Headaches, No Loss of Appetite, No Malaise, No Nausea/Vomiting; Rash; No Shortness of Air, No Syncope, No Weakness Allergies and Home Medications Allergies Coded Allergies: acetaminophen (Verified Allergy, Unknown, 04/02/16) clindamycin (Unverified Allergy, Unknown, 12/27/10) propoxyphene (Verified Allergy, Unknown, 04/02/16) Home Medications Acetaminophen 325 Mg Tablet, 650 MG PO PRN, (Reported) Albuterol Sulfate 8.5 Gm Hfa.aer.ad, 2 PUFF IH Q4H PRN for SHORTNESS OF BREATH Prescribed by: MIMA SEALS on 01/17/16 1637 Budesonide/Formoterol Fumarate 10.2 Gm Hfa.aer.ad, 2 PUFF IH BID, (Reported) Ibuprofen 800 Mg Tablet, 800 MG PO q8h PRN for PAIN, (Reported) Ondansetron 8 Mg Tab.rapdis, 8 MG PO Q6H PRN for NAUSEA/VOMITING-1ST LINE Prescribed by: MIMA SEALS on 02/12/18 1731 Patient Home Medication List Home Medication List Reviewed: Yes Review of Systems Review of Systems Constitutional: no symptoms reported, see HPI Skin: see HPI, pruritus, rash All Other Systems Reviewed Negative Unless Noted: Yes Past Pibxmtz-Wtbxqu-Rmtbyk Hx Past Med/Social Hx: Reviewed Nursing Past Med/Soc Hx Patient Social History Alcohol Use: Denies Use Type Used: Cigarettes Recent Infectious Disease Expo: No Recent Hopitalizations: No Seasonal Allergies Seasonal Allergies: No Past Medical History Surgeries: Yes (MAXILLOFACIAL SURG, TEETH EXTRACTIONS) Section, Hysterectomy Respiratory: Yes (ASTHMA?) COPD Cardiac: No Hypertension Neurological: Yes Neuropathy 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 oz. 78.113577ov; 36.00 BMI Method:Stated General Appearance: No Apparent Distress, WD/WN Eyes: Bilateral Eye Normal Inspection, Bilateral Eye PERRL, Bilateral Eye EOMI HEENT: PERRL/EOMI, TMs Normal, Normal ENT Inspection, Pharynx Normal, Moist Mucous Membranes Neck: Full Range of Motion, Normal Inspection, Non Tender, Supple Respiratory: Chest Non Tender, Lungs Clear, Normal Breath Sounds Cardiovascular: Regular Rate, Rhythm, No Edema, No Murmur, Normal Peripheral Pulses Gastrointestinal: Normal Bowel Sounds, Non Tender, Soft Extremity: Normal Capillary Refill, Normal Range of Motion Neurologic/Psychiatric: Alert, Oriented x3, No Motor/Sensory Deficits Skin: Warm/Dry, Rash (Maculopapular rash to chest and forearms) Progress/Results/Core Measures Suspected Sepsis Recent Fever Within 48 Hours: No Infection Criteria Present: None New/Unexplained Altered Menta: No Sepsis Screen: No Definite Risk SIRS Temperature: Pulse: 103 Respiratory Rate: 16 Blood Pressure 166 /106 Mean: 126 Results/Orders My Orders Orders - BARRETT MCCLAIN Diphenhydramine Tablet (Benadryl Tablet) (01/10/21 14:45) Famotidine Tablet (Pepcid Tablet) (01/10/21 14:45) Loratadine Tablet (Claritin Tablet) (01/10/21 14:45) Medications Given in ED Current Medications Medications Dose Ordered Sig/Favio Route Start Time Stop Time Status Last Admin Dose Admin Diphenhydramine HCl 25 mg ONCE ONCE PO 01/10/21 14:45 01/10/21 14:46 DC 01/10/21 14:53 25 MG Famotidine 20 mg ONCE ONCE PO 01/10/21 14:45 01/10/21 14:46 DC 01/10/21 14:53 20 MG Loratadine 10 mg ONCE ONCE PO 01/10/21 14:45 01/10/21 14:46 DC 01/10/21 14:55 10 MG Vital Signs/I&O 01/10/21 14:32 Temp 36.8 Pulse 103 Resp 16 B/P (MAP) 166/106 (126) Pulse Ox 98 O2 Delivery Room Air Capillary Refill : Less Than 3 Seconds Blood Pressure Mean: 126 Progress Note : Time: 14:32 Progress Note Patient seen and evaluated, will give Benadryl, Pepcid and Claritin. 1515 patient reports symptoms have improved she no longer feels as though her throat is swelling. Rash has resolved from chest and arms. No difficulty breathing. Discharge instructions and return precautions reviewed with the patient. All questions answered. Departure Impression Primary Impression: Allergic reaction Qualified Codes: T78.40XA - Allergy, unspecified, initial encounter Disposition: 01 HOME, SELF-CARE Condition: Improved Departure-Patient Inst. Decision time for Depature: 15:15 Referrals: [facility] [place] (PCP/Family) Primary Care Physician Patient Instructions: Food Allergy Add. Discharge Instructions: Take Benadryl 50 mg every 8 hours for the next 2 days. Take Pepcid 20 mg twice a day for the next 2 days. You may also take Zyrtec or Claritin once daily. Avoid the food you are eating prior to the reaction. Follow-up with your family doctor if symptoms are not improving or worsen. Return to the emergency department for new, urgent healthcare needs. All discharge instructions reviewed with patient and/or family. Voiced understanding. BARRETT MCCLAIN Jan 10, 2021 15:35
[2021-01-10 15:38] VITALS: BP 156/96
== END 2021-01-10 15:38 | disposition home or self-care (01) ==
LOC: EDUNIT# 14:32 → ER 14:34
DX: T78.1XXA Other adverse food reactions, not elsewhere classified, initial encounter (principal); J44.9 Chronic obstructive pulmonary disease, unspecified; Z88.8 Allergy status to other drugs, medicaments and biological substances; Z88.6 Allergy status to analgesic agent; Z88.1 Allergy status to other antibiotic agents
CPT/HCPCS: 99283

== ENCOUNTER → 2021-05-14 | Outpatient (CLI) | payer OTHER ==
[~2021-05-14] MED LIST changes: +RT-ALBUTEROL SULF 2.5 MG/3 ML PRE-MIX VIAL INH ONE
== END ==
LOC: RT 08:00
PROVIDERS: ATTEND Surgery
DX: Z02.71 Encounter for disability determination (principal); J42 Unspecified chronic bronchitis
CPT/HCPCS: 94060

== ENCOUNTER → 2022-05-28 | Outpatient (CLI) | payer OTHER ==
[~2022-05-28] MED LIST changes: +DICY20TA; -DICY20TA10; -DOXY100C2 PO; +DOXY100C5 PO; -RT-ALBUTEROL SULF 2.5 MG/3 ML PRE-MIX VIAL INH ONE
--- NOTE | 2022-05-28 11:10 | Diagnostic Imaging Report ---
INDICATION: LOW BACK PAIN, BILAT KNEE PAIN COMPARISON: None. FINDINGS: Multiple radiographic views of the bilateral knees were obtained and demonstrate no acute fracture or dislocation. No focal osseous lesions are seen. No significant joint effusion is seen. The surrounding soft tissue structures are unremarkable. There are no radiopaque foreign bodies. IMPRESSION: 1. Unremarkable radiographic exam of the bilateral knees Dictated by: Dictated on workstation # [id number]
--- NOTE | 2022-05-28 11:13 | Diagnostic Imaging Report ---
INDICATION: Lower back pain. COMPARISON: None FINDINGS: Frontal and lateral radiographic views of the lumbar spine were obtained. Static alignment is preserved. There is no significant anteroretrolisthesis. There is no evidence of jumped facets. Vertebral body heights are maintained. There is no evidence of acute fracture. Mild degenerative changes are noted and consist primarily of lower lumbar spine facet arthropathy. This appears greatest at the L5-S1 level, right greater than left. Included small bowel loops are nondistended. Calcified aortic atherosclerosis is also noted. IMPRESSION: 1. Degenerative changes of the lower lumbar spine, but no evidence of acute fracture or dislocation 2. Calcified aortic atherosclerosis. Correlation with risk factors is recommended. Dictated by: Dictated on workstation # [id number]
== END ==
LOC: RAD 08:53
PROVIDERS: ATTEND Family Medicine
DX: Z02.71 Encounter for disability determination (principal); M47.816 Spondylosis without myelopathy or radiculopathy, lumbar region; I70.0 Atherosclerosis of aorta; M25.561 Pain in right knee; M25.562 Pain in left knee
CPT/HCPCS: 72100

== ENCOUNTER 2022-10-30 19:56 | Emergency (ER) | payer SELFPAY ==
[~2022-10-30] VITALS: Ht 160 cm; Wt 105.2 kg
[~2022-10-30 19:56] MED LIST changes: +ALBU8.5H6 IH; -RT-ALBUINH IH
[2022-10-30] MEDS ORDERED: LOPE2CAP PO (20:48)
--- NOTE | 2022-10-30 20:49 | ED GI ---
General Chief Complaint: Abdominal/GI Problems Stated Complaint: FEVER/DIARRHEA/COUGH Nursing Triage Note: PT AMB TO RM 10 W C/O DIARRHEA, COUGH, AND FEVER SX YESTERDAY. PT A&OX4. Source of Information: Patient Exam Limitations: No Limitations History of Present Illness Date Seen by Provider: Oct 30, 2022 Time Seen by Provider: 20:05 Initial Comments Patient is a 47-year-old female who presents to the emergency department with diarrhea, cough, and fever that began yesterday. Patient denies any known sick contacts. Patient has had no medications today. Denies any blood in the diarrhea. Allergies and Home Medications Allergies Coded Allergies: acetaminophen (Verified Allergy, Unknown, 04/02/16) clindamycin (Unverified Allergy, Unknown, 12/27/10) propoxyphene (Verified Allergy, Unknown, 04/02/16) Patient Home Medication List Home Medication List Reviewed: Yes Acetaminophen (Apap) 325 Mg Tablet, 650 MG PO PRN, (Reported) Entered as Reported by: JAMES LEWIS on 12/09/1453 Albuterol Sulfate (Ventolin Hfa) 8.5 Gm Hfa.aer.ad, 2 PUFF IH Q4H PRN for SHORTNESS OF BREATH Prescribed by: MIMA SEALS on 01/17/16 1637 Budesonide/Formoterol Fumarate (Symbicort 160-4.5 Mcg Inhaler) 10.2 Gm Hfa.aer.ad, 2 PUFF IH BID, (Reported) Entered as Reported by: SHELLI FIORE on 02/12/18 1436 Clonidine HCl (Clonidine HCl) 0.1 Mg Tablet, 0.1, (Reported) Entered as Reported by: JAMES MOREAU on 01/17/16 1422 Dicyclomine HCl (Dicyclomine HCl) 20 Mg Tablet, (Reported) Entered as Reported by: JAMES MOREAU on 01/17/16 1422 Hydroxyzine HCl (Hydroxyzine HCl) 10 Mg Tablet, 10 MG PO, (Reported) Entered as Reported by: SHELLI FIORE on 02/12/18 1436 Ibuprofen (Ibuprofen) 800 Mg Tablet, 800 MG PO q8h PRN for PAIN, (Reported) Entered as Reported by: JAMES LEWIS on 12/09/14 005 Levothyroxine Sodium (Levothyroxine Sodium) 50 Mcg Tablet, (Reported) Entered as Reported by: JAMES MOREAU on 01/17/16 1422 Lisinopril (Lisinopril) 20 Mg Tablet, 20, (Reported) Entered as Reported by: JAMES MOREAU on 01/17/16 1422 Loperamide HCl (Loperamide) 2 Mg Capsule, 2 MG PO Q4H PRN for DIARRHEA Prescribed by: Artemio Antunez on 10/30/222047 Ondansetron (Ondansetron Odt) 8 Mg Tab.rapdis, 8 MG PO Q6H PRN for NAUSEA/VOMITING-1ST LINE Prescribed by: MIMA SEALS on 02/12/18 173 Review of Systems Review of Systems Constitutional: see HPI, chills, fever EENTM: No Symptoms Reported Respiratory: See HPI, Cough Cardiovascular: No Symptoms Reported Gastrointestinal: See HPI, Diarrhea Genitourinary: No Symptoms Reported Musculoskeletal: no symptoms reported Skin: no symptoms reported Psychiatric/Neurological: No Symptoms Reported Endocrine: No Symptoms Reported Hematologic/Lymphatic: No Symptoms Reported Past Bdesxxh-Lnjgzq-Ycigxp Hx Patient Social History Tobacco Use?: Yes Tobacco type used: Cigarettes Smoking Status: Current Everyday Smoker Use of E-Cig and/or Vaping dev: No Substance use?: No Alcohol Use?: No Immunizations Up To Date Influenza Vaccine Up-to-Date: No; Not Current First/Initial COVID19 Vaccinat: 2020 Second COVID19 Vaccination Isai: 2020 Third COVID19 Vaccination Date: NONE 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 Seasonal Allergies Seasonal Allergies: No Past Medical History Surgeries: Yes (MAXILLOFACIAL SURG, TEETH EXTRACTIONS) Section, Hysterectomy Respiratory: Yes (ASTHMA?) COPD Cardiac: No Hypertension Neurological: Yes Neuropathy 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 oz. 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, no motor/sensory deficits, alert, normal mood/affect, oriented x 3 Skin: normal color, warm/dry Progress/Results/Core Measures Results/Orders Lab Results Laboratory Tests Test 10/30/22 20:07 Range/Units Influenza Type A (RT-PCR) Not Detected Not Detecte Influenza Type B (RT-PCR) Not Detected Not Detecte SARS-CoV-2 RNA (RT-PCR) Not Detected Not Detecte My Orders Orders - ARTEMIO ANTUNEZ APRN Covid 19 Inhouse Test (10/30/22 20:07) Influenza A And B By Pcr (10/30/22 20:07) Isolation Central Supply Req (10/30/22 20:07) Loperamide Tablet (Imodium Tablet) (10/30/22 21:00) Vital Signs/I&O 10/30/22 10/30/22 20:03 20:58 Temp 36.2 36.2 Pulse 115 90 Resp 20 16 B/P (MAP) 186/99 (128) 165/89 Pulse Ox 94 96 O2 Delivery Room Air Room Air Blood Pressure Mean: 128 Progress Progress Note : Progress Note Patient is nontoxic and well-hydrated on exam. No adventitious lung sounds or increased work of breathing noted. Abdominal exam is reassuring without focal provocation of pain or rigidity/distention. Vital signs are reassuring. Viral testing was obtained. Flu and COVID are negative. Patient was given a dose of loperamide in the emergency department. Discussed supportive care and anticipatory guidance. Viral etiology of symptoms likely. Return precautions for urgent symptomology discussed. Follow-up with PCP. Patient verbalized understanding. Departure Impression Primary Impression: Acute viral syndrome Disposition: 01 HOME, SELF-CARE Condition: Stable Departure-Patient Inst. Decision time for Depature: 20:45 Referrals: [facility] (PCP/Family) Primary Care Physician Patient Instructions: Viral Syndrome (DC) Scripts Loperamide HCl (Loperamide) 2 Mg Capsule 2 MG PO Q4H PRN for DIARRHEA for 2 Days, #12 CAP 0 Refills Prov: ARTEMIO ANTUNEZ APRN 10/30/22 ARTEMIO ANTUNEZ APRN Oct 30, 2022 20:49
[2022-10-30 20:58] VITALS: BP 165/89
[2022-10-30] MEDS ORDERED: LOPERAMIDE 2 MG (IMODIUM) TABLET PO ONE (21:00)
== END 2022-10-30 20:59 | disposition home or self-care (01) ==
LOC: EDUNIT# 19:56 → ER 20:00
DX: B34.9 Viral infection, unspecified (principal); R05.9 Cough, unspecified; R50.9 Fever, unspecified; R19.7 Diarrhea, unspecified; F17.210 Nicotine dependence, cigarettes, uncomplicated; Z20.822 Contact with and (suspected) exposure to COVID-19
CPT/HCPCS: 87636; 99283